=== PATIENT | female | born 1990 | race Caucasian/White ===

== ENCOUNTER 2017-09-22 06:00 | Inpatient (IN) ==
[2017-09-22] MEDS ORDERED: Metoclopramide 10 MG/2 ML VIAL IVP PRN (06:49)
[2017-09-22] MEDS ORDERED: Naloxone 0.4 MG/ML INJ IVP PRN (06:49)
[2017-09-22] MEDS ORDERED: *HR* Nalbuphine 10 MG/ML AMPUL IVP PRN (06:49)
[2017-09-22] MEDS ORDERED: miSOPROStol 25 MCG TABLET PO PRN (06:49)
[2017-09-22] MEDS ORDERED: Famotidine 20 MG/2 ML VIAL IVP PRN (06:49)
[2017-09-22] MEDS ORDERED: Ondansetron 4 MG/2 ML VIAL IVP PRN (06:49)
[2017-09-22 07:42] LABS: Basophils % 0.2 %; Eosinophils # 0.1 K/mcL (0.0-0.6); Eosinophils % 0.6 %; Hematocrit 33.7 % (35.3-44.9); Lymphocytes # 2.5 K/mcL (0.6-4.6); Lymphocytes % 24.1 %; Mean Corpuscular HGB Conc 35.6 g/dL (31.6-35.5); Mean Corpuscular Hemoglobin 35.6 pg (28.0-33.3); Mean Platelet Volume 9.9 fL (9.4-12.4); Monocytes # 0.7 K/mcL (0.0-1.3); Monocytes % 6.9 %; Neutrophils # 6.9 K/mcL (1.6-8.9); Platelet Count 291 K/mcL (140-400); Red Blood Count 3.37 M/mcL (3.82-4.97); Red Cell Distribution Width 13.2 % (11.5-14.5); Segmented Neutrophils % 67.2 %
[2017-09-22] MEDS: Ringers Solution, Lactated 1,000 ML IVC SCH ×2 (07:52→18:43)
[2017-09-22] MEDS ORDERED: miSOPROStol 25 MCG TABLET VG SCH (08:00)
--- NOTE | 2017-09-22 08:01 | OB/GYN History & Physical ---
Date of Encounter: 09/22/17 Time of Encounter: 08:00 Assessment and Plan (1) and not yet delivered in third trimester Current visit: Yes Status: Acute (2) Post-term , 40-42 weeks of gestation Current visit: Yes Status: Acute (3) Encounter for induction of labor Current visit: Yes Status: Acute Patient be induced with a Arevalo catheter and Cytotec vaginally we will get her an epidural when appropriate plan is to anticipate vaginal delivery History of Present Illness HPI: Ms. Escudero is a 26 year old female 2 para 0010 at 40-4/7 weeks who presents today for induction of labor. Patient was advised if she had not delivered close to 41 weeks with ahead and bring her in she originally wanted to go into labor but this past week to change her mind she denies any leaking of fluid still having good movement has been having occasional contractions. She did have an ultrasound one month ago baby weight 2344 g which was at the 23rd percentile with amniotic fluid index of 13 cm. Patient is O+, GBS negative, rubella positive, Varicella positive. Past Med Surg Social Fam HX - Past Medical History Medical history: thyroid disease (Hypothyroidism) Psychiatric history: no psych history - Past Surgical History Surgical History: appendectomy Additional surgical history: suction d&c, wisdom teeth. appy - Social History Smoking Status: Never smoker Smokeless Tobacco Status: No Alcohol use: none Drug use: none Occupational status: employed Current living situation: Home - Independent Activity Level: Independent ambulation Recent Out of Country Travel Within the Last 8 Weeks: No Exposure or Possible Exposure to Illness During Travel: No - Family History Father Adopted: No Family Member Ethnicity: Non- Living Status: Still Living Hx Family Cardiac Disorders: No Hx Family Respiratory Disorders: No Hx Family Cancer: No Hx Family GI Disorders: No Hx Family Genitourinary Disorders: No Hx Family Endocrine Disorder: No Hx Family Musculoskeletal Disorders: No Hx Family Neuromuscular Disorders: No Hx Family Neurologic Disorders: No Hx Family HEENT Disorders: No Hx Family Autoimmune Disorders: No Hx Family Reproductive Disorders: No Hx Family Psychosocial Disorders: No Hx Family Medical Disorders: No - Additional Family History Additional family history: Family history noncontributory Obstetrical History - Pregnancies : 2 Para: 0 Term: 0 : 0 Ab's: 1 Livin Medications and Allergies Levothyroxine [Synthroid] 100 mcg PO 0630 11/07/16 [History] Aspirin 81 mg PO DAILY 09/22/17 [History] [id number]/Iron Fumarate/FA/Dss [ 19 Tablet] 1 tab PO DAILY 09/22/17 [ History] 3 Allergy/AdvReac Type Severity Reaction Status Date / Time No Known Allergies Allergy Verified 11/07/16 14:08 Review of System OB All systems PM: reviewed and no additional remarkable complaints except as stated Exam - Constitutional Constitutional: well developed, well nourished, no acute distress, average body habitus - HEENT HEENT: EOMI, PERRL, Mucus Membranes Moist - Neck Neck exam: full ROM - Lungs Respiratory exam: CTAB - Cardiovascular Cardiovascular exam: RRR - Abdomen Abdomen: Present: bowel sounds normal, gravid ( heart tones 140s reactive occasional contractions seen) - Cervix Dilation: 1 Effacement: 80 Station: -3 (Arevalo catheter placed within the cervix 30 mL balloon inflated, 25 g Cytotec placed vaginally) Results All other labs normal. - VTE Reasons for not Prescribing Prophylaxis: Treatment not Indicated - Low risk for VTE
[2017-09-22] MEDS ORDERED: Epidural Premix (fent/bupiv) 110 ML EP SCH (11:30)
[2017-09-22] MEDS ORDERED: Lidocaine -MPF 1% 5 ML AMPUL ONE (11:35)
--- NOTE | 2017-09-22 12:16 | OB Labor Progress Note ---
Date of Encounter: 09/22/17 Time of Encounter: 12:15 Labor Progress Note - Subjective Subjective: Patient will comfortable after her epidural slowly fell out on its own and she had spontaneous rupture membranes clear fluid. - Cervix Cervix: 5/80/0 - Heart Tones Heart Tones: heart tones 140s reactive - Difficult Run Difficult Run: Contractions every 2 minutes - Plan Plan: Continue current care if she does not make cervical change we will augment with Pitocin plan is to anticipate vaginal delivery
--- NOTE | 2017-09-22 12:50 | Anesthesia Evaluation PreOp ---
Date of Encounter: 09/22/17 Time of Encounter: 12:00 - Past History Planned Operation: luis Cardiac History: Denies any Significant Hx Pulmonary History: Denies Any Significant HX SUPERVISOR REFINING History: Denies Any Significant HX Other Medical History: Denies Any Significant HX Anesthesia History: No Prior Anesthetic Complications : Yes Test: Positive Alcohol Use: none Drug use: none Medications and Allergies Levothyroxine [Synthroid] 100 mcg PO 0630 11/07/16 [History] Aspirin 81 mg PO DAILY 09/22/17 [History] Tvp023/Iron Fumarate/FA/Dss [ 19 Tablet] 1 tab PO DAILY 09/22/17 [ History] 3 Allergy/AdvReac Type Severity Reaction Status Date / Time No Known Allergies Allergy Verified 11/07/16 14:08 - Meds/Allergy Pre-op Review Medications Reviewed: Yes Allergies Reviewed: No Beta Blockers on Current Med List: No Anesthesia Results - Labs 09/22/17 07:05 Anesthesia Exam - HEENT Pupil (Motor): Pupils equal Mallampati: II Teeth: Normal Oral Opening: Greater than 3 - SUPERVISOR REFINING LOC: Oriented SUPERVISOR REFINING Motor: Normal RUE, Normal LUE, Normal RLE, Normal LLE, Normal Face SUPERVISOR REFINING Sensory: Normal: RUE, LUE, RLE, LLE, Face - Cardiac Rhythm: Regular Murmur: None JVD: No Carotid Bruit: No - Pulmonary Breath Sounds: bilateral Clear Respiratory Effort: Symmetrical Anesthesia Assess/Plan ASA Score: 1 Anesthetic Plan: Regional Autologous Blood: No Monitoring Plan: Standard Monitors
[2017-09-22] MEDS ORDERED: EPHEDrine 50 MG/ML VIAL ONE (12:51)
--- NOTE | 2017-09-22 12:53 | Anesthesia Procedures ---
Date of Encounter: 09/22/17 Time of Encounter: 12:30 Procedures: Anesthesia - Epidural/Spinal Patient ID/Chart reviewed: Yes Patient examined: Yes OB Eval: Gestational age: 38.4 OB Eval: : 1 OB Eval: Hx Para: 0 OB Eval: Dilated at (cm): 5 OB Eval: Contractions: Non-stressed pattern Consent Obtained: Yes Site Prep: Aseptic Technique, Sterile prep and drape, Povidone-Iodine 1% Patient position: upright Amount of Local Anesthetic used: 3 Touhy Needle Gauge: 18 Touhy Needle Depth (cm): 4 Catheter Depth at Skin (cm): 8 Test Dose (1.5% Lido + Epi): Volume given (mls): 3 Test Dose Result: Negative Loading Dose Administered: Thru Catheter Infusion Rate (mls/hr): [address]: Tegaderm, Tape Interspace Used: L4-L5 Loss of Resistance (JULIANO): Yes Blood: No CSF: No Paresthesia: No Vitals + FHT's: stable throughout see nursing record
[2017-09-22] MEDS ORDERED: Oxytocin 20 units/ LR 1000 mL 20 UNIT/1,000 ML BAG IVC SCH ×2 (14:30→22:24)
--- NOTE | 2017-09-22 15:25 | OB Labor Progress Note ---
Date of Encounter: 09/22/17 Time of Encounter: 15:20 Labor Progress Note - Subjective Subjective: Patient feeling better not feeling contractions - Cervix Cervix: 6/100/0 - Heart Tones Heart Tones: FHT's 140' reactive - [place]: IUPC placed contractions every 2 min not adequate - Plan Plan: I will augment with Pitocin
--- NOTE | 2017-09-22 20:41 | OB/GYN Procedure Note ---
Delivery - Delivery Date: 09/22/17 Provider: Bill Lowe Intrapartum events: none Delivery induction: bee, misoprostol Delivery augmentation: pitocin Delivery monitor: external FHT, external uterine, internal uterine Anesthesia: epidural Quantitated Blood Loss: 300 - (s) A Delivery Date: 09/22/17 Delivery Time: 19:49 Presentation: vertex Position: OLIVIA Route of delivery: Gender: Female Viability: Viable Pounds: 7 Ounces: 14 Weight Gram: 3.575 kg at 5 mins: 9 at 10 mins: 9 Shoulder Dystocia: not encountered Specimens collected: cord blood Placenta: spontaneous Cord: nuchal cord, 3 umbilical vessels, nuchal reduced - Repair Episiotomy: none Laceration Description: Perineal - 2nd Degree - Complications Delivery complications: none Delivery comments: The patient is a 26-year-old 2 para 0010 at 30 4/7 weeks who presented for induction of labor secondary to term with favorable cervix patient received a Bee catheter was Cytotec catheter fell out approximately 1 hour after insertion she had spontaneous rupture membranes of clear fluid. Patient did receive an epidural she progressed to probably became complete and pushed for approximately 60 minutes delivering a viable female in right occiput anterior presentation at 1949. There was no nuchal cord, no meconium, was bulb suctioned on the abdomen. Apgars were 9 at one, 9 at 5 minutes , weight was 7 lbs. 14 oz. Placenta was delivered spontaneously with a three-vessel cord, technical operations manager at [employer], anesthesia epidural, estimated blood loss 300 mL. Patient had a second-degree perineal laceration repaired with 3-0 Monocryl in usual fashion. Cervix and vagina was visualized intact. Patient tolerated the delivery well she will be observed 2 hours before being taken floor. - Disposition Mom disposition: stable in LDR [place] disposition: stable in LDR
[2017-09-22] MEDS ORDERED: *HR* HYDROcodone/Acet 5/325 mg TABLET PO PRN (22:24)
[2017-09-22] MEDS ORDERED: Acetaminophen 325 MG TABLET PO PRN (22:24)
[2017-09-22] MEDS ORDERED: Measles/Mumps/Rubella Vacc 0.5 ML VIAL SQ PRN (22:24)
[2017-09-23] MEDS: Ibuprofen 600 MG TABLET PO PRN ×2 (06:03→20:56)
[2017-09-23 06:41] LABS: Basophils % 0.1 %; Hematocrit 32.8 % (35.3-44.9); Hemoglobin 11.1 g/dL (11.5-15.4); Immature Granulocytes % 0.7 % (0-4); Lymphocytes # 2.4 K/mcL (0.6-4.6); Lymphocytes % 11.9 %; Mean Corpuscular HGB Conc 33.8 g/dL (31.6-35.5); Mean Corpuscular Hemoglobin 34.3 pg (28.0-33.3); Mean Corpuscular Volume 101.2 fL (83.0-100.0); Mean Platelet Volume 9.9 fL (9.4-12.4); Monocytes % 5.1 %; Neutrophils # 16.5 K/mcL (1.6-8.9); Platelet Count 290 K/mcL (140-400); Red Blood Count 3.24 M/mcL (3.82-4.97); Red Cell Distribution Width 13.2 % (11.5-14.5); Segmented Neutrophils % 82.2 %
--- NOTE | 2017-09-23 07:08 | OB/GYN Progress Note ---
Date of Encounter: 09/23/17 Time of Encounter: 07:07 - Assessment and Plan (1) and not yet delivered in third trimester Current Visit: No Status: Acute (2) Post-term , 40-42 weeks of gestation Current Visit: Yes Status: Acute (3) Encounter for induction of labor Current Visit: No Status: Acute Patient be induced with a Arevalo catheter and Cytotec vaginally we will get her an epidural when appropriate plan is to anticipate vaginal delivery (4) Status post vaginal delivery Current Visit: Yes Status: Acute Subjective - Subjective Interval history: Patient is doing well this morning minimal pain minimal bleeding. Breast- feeding is going well would like to stay another day just to make sure that nothing is going well with breast-feeding. Patient has been encouraged to ambulate has already taken a shower this morning and tolerating diet. Patient reports: appetite normal, pain well controlled, ambulating normally [place]: doing well Objective - Latest Vital Signs Latest vital signs: Vital Signs Temp Pulse Resp BP Pulse Ox 09/23/17 01:05 98.2 F 99 14 115/77 98 09/23/17 00:03 98.4 F 95 20 117/78 98 09/22/17 22:58 98.3 F 77 16 126/85 97 Intake and Output 09/22/17 09/22/17 09/23/17 15:59 23:59 07:59 Intake Total 1000 / 1000 800 / 800 Output Total 1550 / 1550 Balance 1000 / 1000 -750 / -750 Intake: IV Fluids 1000 / 1000 Lactated Ringers 1,000 ML @ 125 1000 / 1000 mls/hr IVC .Q8H [facility] Rx#: [id number] Oral 800 / 800 Output: Urine 1550 / 1550 Other: Weight 64.1 kg 64.1 kg Patient Weight 09/23/17 23:59 Weight 64.1 kg - Exam Lungs: bilateral: normal Chest: Normal S1, Normal S2 Extremities: Present: normal Abdomen: Present: normal appearance, gravid Uterus: Present: normal, firm Uterus Position: At Umbilicus - Labs Labs: Laboratory Results - last 24 hr 09/22/17 09/23/17 07:05 06:07 WBC 10.2 20.1 H D RBC 3.37 L 3.24 L Hgb 12.0 11.1 L Hct 33.7 L 32.8 L MCV 100.0 101.2 H MCH 35.6 H 34.3 H MCHC 35.6 H 33.8 RDW 13.2 13.2 Plt Count 291 290 MPV 9.9 9.9 Immature Gran % 1.0 0.7 Seg Neutrophils % 67.2 82.2 Lymphocytes % 24.1 11.9 Monocytes % 6.9 5.1 Eosinophils % 0.6 0.0 Basophils % 0.2 0.1 Neutrophils # 6.9 16.5 H Lymphocytes # 2.5 2.4 Monocytes # 0.7 1.0 Eosinophils # 0.1 0.0 Basophils # 0.0 0.0
[2017-09-23] MEDS: Prenatal Vit/FA 1 EACH TABLET PO SCH (08:50)
[2017-09-23] MEDS: Aspirin 81 MG TAB.CHEW PO SCH (08:51)
[2017-09-23] MEDS ORDERED: Prenatal Vit/FA 1 EACH TABLET PO SCH (09:00)
[2017-09-24] MEDS: Ibuprofen 600 MG TABLET PO PRN (07:53)
[2017-09-24] MEDS: Aspirin 81 MG TAB.CHEW PO SCH (07:54)
[2017-09-24] MEDS: Prenatal Vit/FA 1 EACH TABLET PO SCH (07:54)
[2017-09-24 07:55] VITALS: BP 119/66
--- NOTE | 2017-09-24 08:32 | Discharge Summary ---
Date of Encounter: 09/24/17 Time of Encounter: 08:36 - Discharge Diagnosis (1) Status post vaginal delivery Priority: Primary Status: Acute Comments: S/P vaginal delivery day 2 VSS Pain is well controlled Lochia is light and without clots Voiding without difficulty and passing flatus Discharge home today - Discharge Medications Prescriptions: Ibuprofen [Motrin] 600 mg PO Q6HR PRN #30 tablet PRN Reason: Cramping Breast Pump [BREAST PUMP] 1 each .ROUTE AD #1 each Docusate [Colace] 100 mg PO BID #20 capsule Home Medications: Levothyroxine [Synthroid] 100 mcg PO 0630 11/07/16 [History] Aspirin 81 mg PO DAILY 09/22/17 [History] [id number]/Iron Fumarate/FA/Dss [ 19 Tablet] 1 tab PO DAILY 09/22/17 [ History] Acetaminophen [Tylenol] 650 mg PO Q6HR PRN tablet 09/24/17 [Rx] Benzocaine/Menthol [place] [Dermoplast [place]] 1 appl TP QID PRN aerosol 09/24/17 [Rx] Breast Pump [BREAST PUMP] 1 each .ROUTE AD #1 each 09/24/17 [Rx] Docusate [Colace] 100 mg PO BID #20 capsule 09/24/17 [Rx] Ibuprofen [Motrin] 600 mg PO Q6HR PRN #30 tablet 09/24/17 [Rx] Allergies/Adverse Reactions: 3 Allergy/AdvReac Type Severity Reaction Status Date / Time No Known Allergies Allergy Verified 11/07/16 14:08 Data Procedures and tests throughout hospitalization: Laboratory Tests 09/22/17 09/23/17 07:05 06:07 WBC 10.2 20.1 H D RBC 3.37 L 3.24 L Hgb 12.0 11.1 L Hct 33.7 L 32.8 L MCV 100.0 101.2 H MCH 35.6 H 34.3 H MCHC 35.6 H 33.8 RDW 13.2 13.2 Plt Count 291 290 MPV 9.9 9.9 Immature Gran % 1.0 0.7 Seg Neutrophils % 67.2 82.2 Lymphocytes % 24.1 11.9 Monocytes % 6.9 5.1 Eosinophils % 0.6 0.0 Basophils % 0.2 0.1 Neutrophils # 6.9 16.5 H Lymphocytes # 2.5 2.4 Monocytes # 0.7 1.0 Eosinophils # 0.1 0.0 Basophils # 0.0 0.0 Date of admission: 09/22/17 06:17 Primary care physician: Shila Hernandez CNP Consults: 09/22/17 22:24 Consult to Cloud Services Architect [CONS] Routine Comment: Vaginal delivery, consult needed Discharging clinician: Perlita Fang Anticipated date of discharge: 09/24/17 - Patient Status Disposition: Home, Self-Care Condition: Good Functional capacity at discharge: independent ambulation Overall status at discharge: patient is progressing back to baseline - Discharge Instructions Follow Up With: Shila Hernandez CNP [Primary Care Provider] - Bill Lowe DO [Partnered Physician] - - Diet and Activity Activity: increase activity as tolerated Diet: regular diet Hospital Course Reason for admission: induction of labor, IUP at term Delivery: Episiotomy: none Laceration: 2nd degree Other procedures: none complications: none Discharge diagnosis: IUP at term delivered [place] baby: female Time Attestation: Total time spent providing and/or coordinating discharge services: Time Spent: Less than 30 minutes Exam - Constitutional Vitals: Temp Pulse Resp BP Pulse Ox 97.7 F 77 16 119/66 100 09/24/17 07:54 09/24/17 07:54 09/24/17 07:58 09/24/17 07:54 09/23/17 20:50 General appearance IM: cooperative, A&O X 3, pleasant - Respiratory Respiratory exam: Present: CTAB - Cardiovascular Cardiovascular exam IM: Present: RRR, +S1, +S2 - GI/Abdominal GI/Abdominal exam IM: normal bowel sounds, soft - Rectal Rectal exam: deferred - Uterine Tone: Firm Uterus Position: At Umbilicus, Midline - Extremities Exam Extremities exam IM: Present: normal capillary refill, normal inspection, radial pulses palpable and symmetrical - Neurological Exam Neurological exam: alert, oriented X3, reflexes normal
[2017-09-24] MEDS ORDERED: Benzocaine/Menthol 56 GM AEROSOL SPRAY TP PRN (08:36)
== END 2017-09-24 10:30 | disposition home or self-care (01) | DRG 775 ==
LOC: 1NENULAB 06:17 → 1NENUOBS 22:12
PROVIDERS: ADMIT Obstetrics & Gynecology; ATTEND Obstetrics & Gynecology

== ENCOUNTER 2019-05-11 10:50 | Inpatient (IN) ==
[2019-05-11] MEDS ORDERED: miSOPROStoL 25 MCG TABLET VG PRN (10:56)
[2019-05-11] MEDS ORDERED: Metoclopramide 10 MG/2 ML VIAL IVP PRN (10:56)
[2019-05-11] MEDS ORDERED: Famotidine 20 MG/2 ML VIAL IVP PRN (10:56)
[2019-05-11] MEDS ORDERED: Azithromycin 500 MG in 0.9 % Sodium Chloride 250 ML IVPB ONE (10:56)
[2019-05-11] MEDS ORDERED: Naloxone 0.4 MG/ML INJ IVP PRN (10:56)
[2019-05-11] MEDS ORDERED: *HR* FentaNYL (PF) 100 MCG/2 ML VIAL IVP PRN (10:56)
[2019-05-11] MEDS ORDERED: Lidocaine 1% 20 ML MDV INFILT PRN (10:56)
[2019-05-11] MEDS ORDERED: Ondansetron 4 MG/2 ML VIAL IVP PRN (10:56)
[2019-05-11] MEDS ORDERED: Ringers Solution, Lactated 1,000 ML IVC SCH (11:00)
[2019-05-11 11:45] LABS: Basophils % 0.2 %; Eosinophils % 0.2 %; Hematocrit 34.5 % (35.3-44.9); Hemoglobin 11.8 g/dL (11.5-15.4); Immature Granulocytes % 0.6 % (0-4); Lymphocytes # 2.9 K/mcL (0.6-4.6); Lymphocytes % 22.6 %; Mean Corpuscular HGB Conc 34.2 g/dL (31.6-35.5); Mean Corpuscular Hemoglobin 35.1 pg (28.0-33.3); Mean Corpuscular Volume 102.7 fL (83.0-100.0); Mean Platelet Volume 9.5 fL (9.4-12.4); Monocytes # 0.7 K/mcL (0.0-1.3); Monocytes % 5.5 %; Neutrophils # 9.2 K/mcL (1.6-8.9); Platelet Count 314 K/mcL (140-400); Red Blood Count 3.36 M/mcL (3.82-4.97); Red Cell Distribution Width 12.4 % (11.5-14.5); Segmented Neutrophils % 70.9 %
[2019-05-11 12:34] LABS: Amphetamine Screen,Urine Negative ng/mL (Cutoff=1000); Barbiturate Screen,Urine Negative ng/mL (Cutoff=200); Benzodiazepines Screen,Urine Negative ng/mL (Cutoff=200); Cannabinoid Screen,Urine Negative ng/mL (Cutoff = 50); Cocaine Screen,Urine Negative ng/mL (Cutoff= 300); Opiate Screen,Urine Negative ng/mL (Cutoff=300); Phencyclidine Screen,Urine Negative ng/mL (Cutoff=25)
[2019-05-11] MEDS ORDERED: *HR* FentaNYL (PF) 100 MCG/2 ML VIAL EP ONE (14:12)
[2019-05-11] MEDS ORDERED: EPHEDrine 50 MG/ML VIAL IVP PRN (14:12)
[2019-05-11] MEDS ORDERED: *HR* FentaNYL (PF) 100 MCG/2 ML VIAL ONE (14:15)
[2019-05-11] MEDS ORDERED: Epidural Premix (fent/bupiv) 110 ML EP SCH (14:15)
[2019-05-11] MEDS ORDERED: Epidural Premix (fent/bupiv) 110 ML EP ONE (14:17)
[2019-05-11] MEDS ORDERED: EPINEPHrine 1 MG/ML VIAL ONE (16:39)
[2019-05-11] MEDS ORDERED: Oxytocin 20 units/ LR 1000 mL 20 UNIT/1,000 ML BAG IVC ONE (17:02)
[2019-05-11] MEDS ORDERED: Oxytocin 20 units/ LR 1000 mL 20 UNIT/1,000 ML BAG IVC SCH (20:29)
[2019-05-11] MEDS ORDERED: *HR* HYDROcodone/Acet 5/325 mg TABLET PO PRN (20:29)
[2019-05-11] MEDS ORDERED: Benzocaine/Menthol 56 GM AEROSOL SPRAY TP PRN (20:29)
[2019-05-11] MEDS ORDERED: Acetaminophen 325 MG TABLET PO PRN (20:29)
[2019-05-11] MEDS ORDERED: Lanolin 7 G OINT...G. TP PRN (20:29)
[2019-05-12 04:34] LABS: Basophils % 0.2 %; Eosinophils % 0.1 %; Hematocrit 38.2 % (35.3-44.9); Hemoglobin 12.8 g/dL (11.5-15.4); Immature Granulocytes % 0.6 % (0-4); Lymphocytes % 16.5 %; Mean Corpuscular HGB Conc 33.5 g/dL (31.6-35.5); Mean Corpuscular Hemoglobin 34.8 pg (28.0-33.3); Mean Corpuscular Volume 103.8 fL (83.0-100.0); Mean Platelet Volume 9.2 fL (9.4-12.4); Monocytes # 0.9 K/mcL (0.0-1.3); Monocytes % 4.7 %; Platelet Count 342 K/mcL (140-400); Red Blood Count 3.68 M/mcL (3.82-4.97); Red Cell Distribution Width 12.2 % (11.5-14.5); Segmented Neutrophils % 77.9 %; White Blood Count 17.9 K/mcL (4.3-11.1)
[2019-05-12] MEDS: Ibuprofen 600 MG TABLET PO PRN ×2 (04:41→14:29)
[2019-05-12 07:45] VITALS: BP 100/69
[2019-05-12] MEDS ORDERED: Prenatal Vit/FA 1 EACH TABLET PO SCH (09:00)
== END 2019-05-12 20:55 | disposition home or self-care (01) ==
LOC: 1NENULAB 10:50 → 1NENUOBS 20:29
PROVIDERS: ADMIT Obstetrics & Gynecology; ATTEND Obstetrics & Gynecology